=== PATIENT | female | born 1945 | race Caucasian/White ===

== ENCOUNTER 2016-10-05 10:12 | Outpatient (RCR) | payer MEDICARE ==
[~2016-10-05 10:12] MED LIST: AMLO2.5T PO; APIX5TAB2 PO; ASCO1TAB17 PO; CALC-80 PO; CHOL100011 PO; DRON400T PO; DRON400T2 PO; LIOT5TAB3 PO; LOSA1TAB23 PO; METO50TA2 PO; MULT-974 PO; VITA400T9 PO
--- OUTSIDE RECORDS SUMMARY | 2016-10-05 10:15 | XMS REPORT | Continuity of Care Document ---
Author Author [facility] Organization [facility] Address Unknown Phone Unavailable Support Name Relationship Address Phone ESTIVEN MADRIGAL MD Caregiver [address] [place] [address] LEONARDO HERNNADEZ Next Of Kin [address] [place] [address] Insurance Providers Payer Name Policy Number Subscriber Name Relationship Wps Medicare [id number] Maurilio Hernandez 18 Self / Same As Patient Blue Cross Mcr Supp [id number] Maurilio Hernandez 18 Self / Same As Patient Advance Directives Directive Response Recorded Date/Time Advance Directives Yes 12/11/14 12:10pm Health Care Power of Blood Bank Order Control Clerk Yes 12/11/14 12:10pm Organ Donor Yes 12/11/14 12:10pm Resuscitation Status Full Code 12/11/14 12:10pm Problems No known problems or medical conditions. Medications Medication Dose Route Sig Days/Qty Instructions Order Date Discontinued Date Status Losartan/Hydrochlorothiazide 1 Tab PO DAILY 12/11/14 Active Amlodipine Besylate (Norvasc 2.5 Mg) 2.5 Mg PO DAILY 12/11/14 Active Metoprolol Tartrate 50 Mg PO BEDTIME 12/11/14 Active Liothyronine Sodium 5 Mcg PO MON, WED, FRI, SUN 12/11/14 12/12/14 Discontinued Calcium Carbonate/Vitamin D3 1 Tab PO DAILY 12/11/14 Active Multivitamin 1 Tab PO DAILY 12/11/14 Active Cholecalciferol 1,000 Unit PO DAILY 12/11/14 Active Vitamin E Mixed 400 Unit PO DAILY 12/11/14 12/12/14 Discontinued Ascorbic Acid/Bioflavonoids 1 Tab PO DAILY 12/11/14 Active Apixaban 5 Mg PO TWICE A DAY 60 Qty 12/12/14 Active Dronedarone Hydrochloride 400 Mg PO TWICE A DAY 60 Qty 12/12/14 Active Social History Social History Problem Response Recorded Date/Time Alcohol Use Denies Use 12/11/2014 12:10pm Recreational Drug Use No 12/11/2014 12:10pm Recent Foreign Travel No 12/11/2014 12:10pm Recent Infectious Disease Exposure No 12/11/2014 12:10pm Hospitalization with Isolation Denies 12/12/2014 4:22pm Sexually Transmitted Disease No 12/11/2014 12:10pm HIV/AIDS No 12/11/2014 12:10pm Smoking Status Never a Smoker 12/11/2014 12:10pm Do you dip or chew tobacco? No 12/11/2014 12:10pm Query Response Start Date Stop Date Smoking Status Never a Smoker Hospital Discharge Instructions No hospital discharge instructions. Plan of Care Discharge Date 12/12/14 12:25pm Disposition 30 STILL A PATIENT Instructions/Education Provided Atrial Fibrillation (GEN) Forms Provided PDI Medical Prescriptions See Medications Section Referrals ESTIVEN MADRIGAL MD (Unspecified) 12/19/14 Address: [address] [place] [phone] Reason(s) for Referral: Your appointment is on Dec 19 at 11 am AMADOR PORTILLO MD (Unspecified) 12/17/14 Address: [address] [place] [phone] Reason(s) for Referral: Your appointment is on Dec 17 at 3 pm Additional Instructions/Education We will call you with the date and time of your sleep study Care Plan and Goals make an appt for her to see Dr. Portillo later this week as an outpatient. Appt to see me next week. Need sto be set up for overnight sleep study for sleep apnea. PLease call in new scripts for patient Functional Status Query Response Date Recorded Comprehension Ability Understands Concepts December 11, 2014 12:10pm Allergies, Adverse Reactions, Alerts Allergen Type Severity Reaction Status Last Updated No Known Drug Allergies Active 09/08/11 Immunizations Name Given Type Date of Pneumonia Vaccine 12/11/09 Historical Date of Influenza Vaccine 08/08/14 Historical Tetanus Booster (TDap) Unknown Historical Vital Signs Acute Vital Signs Vital Response Date/Time Temperature (Fahrenheit) 97.7 degrees F (97.6 - 99.5) Temperature (Calculated Celsius) 36.49258 degrees C (36.4 - 37.5) Temperature Source Tympanic Pulse Rate (adult) 59 bpm (60 - 90) Respiratory Rate 18 bpm (12 - 24) O2 Sat by Pulse Oximetry 96 % (88 - 100) Blood Pressure 112/66 mm Hg Height (Feet) 5 feet Height (Inches) 6.00 inches Height (Calculated Centimeters) 167.904651 cm Weight (Pounds) 172 pounds Weight (Ounces) 8.0 oz Weight (Calculated Grams) 18519.888 gm Weight (Calculated Kilograms) 78.149818 kilograms Calculated BMI 27.11 Results Laboratory Results Test Name Result Units Flags Reference Collection Date/Time Result Date/ Time Comments White Blood Count 7.0 10^3/uL 4.3-11.0 12/12/2014 4:44am 12/12/2014 5: 20am Red Blood Count 4.50 10^6/uL 4.35-5.85 12/12/2014 4:44am 12/12/2014 5: 20am Hemoglobin 13.4 G/DL 11.5-16.0 12/12/2014 4:44am 12/12/2014 5:20am Hematocrit 39 % 35-52 12/12/2014 4:44am 12/12/2014 5:20am Mean Corpuscular Volume 87 FL 80-99 12/12/2014 4:44am 12/12/2014 5: 20am Mean Corpuscular Hemoglobin 30 PG 25-34 12/12/2014 4:44am 12/12/2014 5: 20am Mean Corpuscular Hemoglobin Concent 34 G/DL 32-36 12/12/2014 4:44am 02/2015 5:20am Red Cell Distribution Width 12.7 % 10.0-14.5 12/12/2014 4:44am 2014 5:20am Platelet Count 236 10^3/uL 130-400 12/12/2014 4:44am 12/12/2014 5:20am Mean Platelet Volume 11.0 FL H 7.4-10.4 12/12/2014 4:44am 12/12/2014 5: 20am Neutrophils (%) (Auto) 66 % 42-75 12/11/2014 12:47pm 12/11/2014 12: 53pm Lymphocytes (%) (Auto) 24 % 12-44 12/11/2014 12:47pm 12/11/2014 12: 53pm Monocytes (%) (Auto) 9 % 0-12 12/11/2014 12:47pm 12/11/2014 12:53pm Eosinophils (%) (Auto) 0 % 0-10 12/11/2014 12:47pm 12/11/2014 12:53pm Basophils (%) (Auto) 1 % 0-10 12/11/2014 12:47pm 12/11/2014 12:53pm Neutrophils # (Auto) 6.3 X 10^3 1.8-7.8 12/11/2014 12:47pm 12/11/2014 12:53pm Lymphocytes # (Auto) 2.3 X 10^3 1.0-4.0 12/11/2014 12:47pm 12/11/2014 12:53pm Monocytes # (Auto) 0.9 X 10^3 0.0-1.0 12/11/2014 12:47pm 12/11/2014 12: 53pm Eosinophils # (Auto) 0.0 10^3/uL 0.0-0.3 12/11/2014 12:47pm 12/11/2014 12:53pm Basophils # (Auto) 0.1 10^3/uL 0.0-0.1 12/11/2014 12:47pm 12/11/2014 12 :53pm D-Dimer 0.27 UG/ML 0.00-0.49 12/11/2014 12:50pm 12/11/2014 1:31pm Sodium Level 139 MMOL/L 135-145 12/12/2014 4:44am 12/12/2014 5:42am Potassium Level 3.6 MMOL/L 3.6-5.0 12/12/2014 4:44am 12/12/2014 5:42am Chloride Level 104 MMOL/L 98-107 12/12/2014 4:44am 12/12/2014 5:42am Carbon Dioxide Level 25 MMOL/L 21-32 12/12/2014 4:44am 12/12/2014 5: 42am Blood Urea Nitrogen 23 MG/DL H 7-18 12/12/2014 4:44am 12/12/2014 5:42am Creatinine 0.91 MG/DL 0.60-1.30 12/12/2014 4:44am 12/12/2014 5:42am BUN/Creatinine Ratio 25 12/12/2014 4:44am 12/12/2014 5:42am Estimat Glomerular Filtration Rate > 60 12/12/2014 4:44am 2014 5:42am GFR INTERPRETIVE DATA UNITS FOR ESTIMATED GFR (eGFR): mL/min/1.73 M2 REFERENCE RANGE FOR ESTIMATED GFR (eGFR) eGFR NORMAL eGFR >60 MODERATELY DECREASED eGFR 30-59 SEVERLY DECREASED eGFR 15-29 KIDNEY FAILURE <15 (OR DIALYSIS) Glucose Level 94 MG/DL 70-105 12/12/2014 4:44am 12/12/2014 5:42am Calcium Level 8.9 MG/DL 8.5-10.1 12/12/2014 4:44am 12/12/2014 5:42am Total Bilirubin 0.6 MG/DL 0.1-1.0 12/11/2014 12:50pm 12/11/2014 1:38pm Alkaline Phosphatase 67 U/L 40-136 12/11/2014 12:50pm 12/11/2014 1: 38pm Aspartate Amino Transf (AST/SGOT) 17 U/L 5-34 12/11/2014 12:50pm 2014 1:38pm Alanine Aminotransferase (ALT/SGPT) 20 U/L 0-55 12/11/2014 12:50pm 01/2015 1:38pm Troponin I < 0.30 NG/ML <0.30 12/11/2014 12:50pm 12/11/2014 1:59pm B-Type Natriuretic Peptide 152.4 PG/ML H <100.0 12/11/2014 12:47pm 2014 1:18pm Total Protein 7.5 G/DL 6.4-8.2 12/11/2014 12:50pm 12/11/2014 1:38pm Albumin 4.2 G/DL 3.2-4.5 12/11/2014 12:50pm 12/11/2014 1:38pm Triglycerides Level 125 MG/DL <150 12/12/2014 4:44am 12/12/2014 5:42am Cholesterol Level 187 MG/DL < 200 12/12/2014 4:44am 12/12/2014 5:42am HDL Cholesterol 38 MG/DL L 40-60 12/12/2014 4:44am 12/12/2014 5:42am LDL Cholesterol Direct 124 MG/DL 1-129 12/12/2014 4:44am 12/12/2014 5: 42am VLDL Cholesterol 25 MG/DL 5-40 12/12/2014 4:44am 12/12/2014 5:42am Thyroid Stimulating Hormone (TSH) 2.24 UIU/ML 0.35-4.94 12/11/2014 12: 50pm 12/11/2014 1:59pm Free Thyroxine 0.91 NG/DL 0.70-1.48 12/11/2014 12:50pm 12/11/2014 1: 59pm Procedures Procedure Status Date Provider(s) Tracing only of electrocardiogram completed 12/11/14 ESTIVEN MADRIGAL MD Color Doppler echocardiography completed 12/11/14 ESTIVEN MADRIGAL MD Tracing only of electrocardiogram completed 12/11/14 AMADOR PORTILLO MD Encounters Encounter Location Date/Time Discharged Inpatient Via [facility] 12/11/14 12:18pm
[2016-10-14] MEDS ORDERED: LEVO50TA6 PO (13:15)
[2016-10-14] MEDS ORDERED: OMEG-160 PO (13:15)
[2016-10-14] MEDS ORDERED: GLUT25PO PO (13:15)
[2016-10-14] MEDS ORDERED: FLEC100T PO (15:31)
[2016-10-26] MEDS ORDERED: AMLO2.5T PO (11:55)
[2016-10-26] MEDS ORDERED: FLEC50TA PO (11:55)
[2016-10-26] MEDS ORDERED: OMEG-160 PO (11:55)
[2016-11-10] MEDS ORDERED: FLEC100T PO (10:52)
== END 2017-01-03 | disposition home or self-care (01) ==
LOC: CARD 10:12
PROVIDERS: ATTEND Physician Assistant
DX: I25.10 Atherosclerotic heart disease of native coronary artery without angina pectoris (principal); I10 Essential (primary) hypertension; I48.0 Paroxysmal atrial fibrillation; R00.2 Palpitations
CPT/HCPCS: 93225; 93226

== ENCOUNTER → 2016-11-10 | Day surgery (SDC) | payer MEDICARE ==
[~2016-11-10] VITALS: Ht 168.9 cm; Wt 81.6 kg
[~2016-11-10] MED LIST changes: +BACITRACIN INJECTION 50,000 UNIT, SODIUM CHLORIDE 0.9% IRRIGATIO 500 ML IR ONE; +FLEC100T PO; +FLEC50TA PO; +GLUT25PO PO; +HEParin (CATH LAB) 0 ML IV ONE; +LEVO50TA6 PO; +LIDOCAINE 1% INJ 20 ML (XYLOCAINE) VIAL ONE; +NS IV 1000 ML 1,000 ML IV SCH; +NS IV 1000 ML 1,000 ML ONE; +OMEG-160 PO; +ceFAZolin 1,000 MG (ANCEF) VIAL ONE
--- OUTSIDE RECORDS SUMMARY | 2016-11-10 08:31 | XMS REPORT | Continuity of Care Document ---
Author Author [facility] Organization [facility] Address Unknown Phone Unavailable Support Name Relationship Address Phone ESTIVEN MADRIGAL MD Caregiver [address] [place] [address] LEONARDO HERNANDEZ Next Of Kin [address] [place] [address] Insurance Providers Payer Name Policy Number Subscriber Name Relationship Wps Medicare [id number] Maurilio Hernandez 18 Self / Same As Patient Blue Cross Mcr Supp [id number] Maurilio Hernandez 18 Self / Same As Patient Advance Directives Directive Response Recorded Date/Time Advance Directives Yes 12/11/14 12:10pm Health Care Power of Special Procedure Tech Yes 12/11/14 12:10pm Organ Donor Yes 12/11/14 [...] Referrals ESTIVEN MADRIGAL MD (Unspecified) 12/19/14 Address: [address] [place] [phone] Reason(s) for Referral: Your appointment is on Dec 19 at 11 am AMADOR PORTILLO MD (Unspecified) 12/17/14 Address: [address] [place] [address] [phone] Reason(s) for Referral: Your appointment is on [...] F (97.6 - 99.5) Temperature (Calculated Celsius) 36.18261 degrees C (36.4 - 37.5) Temperature Source Tympanic Pulse Rate (adult) 59 bpm (60 - 90) Respiratory Rate 18 bpm (12 - 24) O2 Sat by Pulse Oximetry 96 % (88 - 100) Blood Pressure 112/66 mm Hg Height (Feet) 5 feet Height (Inches) 6.00 inches Height (Calculated Centimeters) 167.244210 cm Weight (Pounds) 172 pounds Weight (Ounces) 8.0 oz Weight (Calculated Grams) 24412.888 gm Weight (Calculated Kilograms) 78.274685 kilograms Calculated BMI 27.11 Results Laboratory Results [...] Encounters Encounter Location Date/Time Discharged Inpatient Via [facility] 12/11/14 12:18pm
--- OUTSIDE RECORDS SUMMARY | 2016-11-10 08:32 | XMS REPORT | Continuity of Care Document ---
Author Author [facility] Organization [facility] Address Unknown Phone Unavailable Support Name Relationship Address Phone ESTIVEN MADRIGAL MD Caregiver [address] [place] [address] LEONARDO HERNANDEZ Next Of Kin [address] [place] [address] Insurance Providers Payer Name Policy Number Subscriber Name Relationship Wps Medicare [id number] Maurilio Hernandez 18 Self / Same As Patient Blue Cross Mcr Supp [id number] Maurilio Hernandez 18 Self / Same As Patient Advance Directives Directive Response Recorded Date/Time Advance Directives Yes 12/11/14 12:10pm Health Care Power of Hand Ornament Maker Yes 12/11/14 12:10pm Organ Donor Yes 12/11/14 [...] Referrals ESTIVEN MADRIGAL MD (Unspecified) 12/19/14 Address: [address] [place] [address] [phone] Reason(s) for Referral: Your appointment is on Dec 19 at 11 am AMADOR PORTILLO MD (Unspecified) 12/17/14 Address: [address] [place] [phone] Reason(s) for Referral: Your appointment is on [...] F (97.6 - 99.5) Temperature (Calculated Celsius) 36.27500 degrees C (36.4 - 37.5) Temperature Source Tympanic Pulse Rate (adult) 59 bpm (60 - 90) Respiratory Rate 18 bpm (12 - 24) O2 Sat by Pulse Oximetry 96 % (88 - 100) Blood Pressure 112/66 mm Hg Height (Feet) 5 feet Height (Inches) 6.00 inches Height (Calculated Centimeters) 167.073841 cm Weight (Pounds) 172 pounds Weight (Ounces) 8.0 oz Weight (Calculated Grams) 86056.888 gm Weight (Calculated Kilograms) 78.812716 kilograms Calculated BMI 27.11 Results Laboratory Results [...] Encounters Encounter Location Date/Time Discharged Inpatient Via [facility] 12/11/14 12:18pm
[2016-11-10 09:48] VITALS: BP 150/92
== END ==
LOC: CATH 08:27
PROVIDERS: ATTEND Internal Medicine Interventional Cardiology
DX: I49.5 Sick sinus syndrome (principal); I48.0 Paroxysmal atrial fibrillation; I10 Essential (primary) hypertension; Z53.09 Procedure and treatment not carried out because of other contraindication

== ENCOUNTER 2016-11-12 07:55 | Day surgery (SDC) | payer MEDICARE ==
[2016-11-12] VITALS (14 sets, daily range): BP systolic 96–164; BP diastolic 47–82
[~2016-11-12] VITALS: Ht 167.6 cm; Wt 81.6 kg
[~2016-11-12 07:55] MED LIST changes: -BACITRACIN INJECTION 50,000 UNIT, SODIUM CHLORIDE 0.9% IRRIGATIO 500 ML IR ONE; -HEParin (CATH LAB) 0 ML IV ONE; -LIDOCAINE 1% INJ 20 ML (XYLOCAINE) VIAL ONE; -NS IV 1000 ML 1,000 ML IV SCH; -NS IV 1000 ML 1,000 ML ONE; -ceFAZolin 1,000 MG (ANCEF) VIAL ONE
--- OUTSIDE RECORDS SUMMARY | 2016-11-12 07:58 | XMS REPORT | Continuity of Care Document ---
Author Author [facility] Organization [facility] Address Unknown Phone Unavailable Support Name Relationship Address Phone ESTIVEN MADRIGAL MD Caregiver [address] [place] [address] LEONARDO HERNANDEZ Next Of Kin [address] [place] [address] Insurance Providers Payer Name Policy Number Subscriber Name Relationship Wps Medicare [id number] Maurilio Hernandez 18 Self / Same As Patient Blue Cross Mcr Supp [id number] Maurilio Hernandez 18 Self / Same As Patient Advance Directives Directive Response Recorded Date/Time Advance Directives Yes 12/11/14 12:10pm Health Care Power of Coding Coordinator Yes 12/11/14 12:10pm Organ Donor Yes 12/11/14 [...] Referrals ESTIVEN MADRIGAL MD (Unspecified) 12/19/14 Address: [address] [place] [phone] Reason(s) for Referral: Your appointment is on Dec 19 at 11 am AMADOR PORTILLO MD (Unspecified) 12/17/14 Address: [address] [place] [phone] Reason(s) for Referral: Your appointment is on [...] F (97.6 - 99.5) Temperature (Calculated Celsius) 36.54027 degrees C (36.4 - 37.5) Temperature Source Tympanic Pulse Rate (adult) 59 bpm (60 - 90) Respiratory Rate 18 bpm (12 - 24) O2 Sat by Pulse Oximetry 96 % (88 - 100) Blood Pressure 112/66 mm Hg Height (Feet) 5 feet Height (Inches) 6.00 inches Height (Calculated Centimeters) 167.072086 cm Weight (Pounds) 172 pounds Weight (Ounces) 8.0 oz Weight (Calculated Grams) 31025.888 gm Weight (Calculated Kilograms) 78.309497 kilograms Calculated BMI 27.11 Results Laboratory Results [...] Encounters Encounter Location Date/Time Discharged Inpatient Via [facility] 12/11/14 12:18pm
--- OUTSIDE RECORDS SUMMARY | 2016-11-12 08:00 | XMS REPORT | Continuity of Care Document ---
Author Author [facility] Organization [facility] Address Unknown Phone Unavailable Support Name Relationship Address Phone ESTIVEN MADRIGAL MD Caregiver [address] [place] [address] LEONARDO HERNANDEZ Next Of Kin [address] [place] [address] Insurance Providers Payer Name Policy Number Subscriber Name Relationship Wps Medicare [id number] Maurilio Hernandez 18 Self / Same As Patient Blue Cross Mcr Supp [id number] Maurilio Hernandez 18 Self / Same As Patient Advance Directives Directive Response Recorded Date/Time Advance Directives Yes 12/11/14 12:10pm Health Care Power of Pattern Data Operator Yes 12/11/14 12:10pm Organ Donor Yes 12/11/14 [...] Referrals ESTIVEN MADRIGAL MD (Unspecified) 12/19/14 Address: [address] [place] [phone] Reason(s) for Referral: Your appointment is on Dec 19 at 11 am AMADOR PORTILLO MD (Unspecified) 12/17/14 Address: [address] [place] [phone] [phone] Reason(s) for Referral: Your appointment is on [...] F (97.6 - 99.5) Temperature (Calculated Celsius) 36.42889 degrees C (36.4 - 37.5) Temperature Source Tympanic Pulse Rate (adult) 59 bpm (60 - 90) Respiratory Rate 18 bpm (12 - 24) O2 Sat by Pulse Oximetry 96 % (88 - 100) Blood Pressure 112/66 mm Hg Height (Feet) 5 feet Height (Inches) 6.00 inches Height (Calculated Centimeters) 167.250108 cm Weight (Pounds) 172 pounds Weight (Ounces) 8.0 oz Weight (Calculated Grams) 62041.888 gm Weight (Calculated Kilograms) 78.751227 kilograms Calculated BMI 27.11 Results Laboratory Results [...] Encounters Encounter Location Date/Time Discharged Inpatient Via [facility] 12/11/14 12:18pm
[2016-11-12] MEDS ORDERED: NS IV 1000 ML 1,000 ML ONE (08:01)
[2016-11-12] MEDS ORDERED: LIDOCAINE 1% INJ 20 ML (XYLOCAINE) VIAL ONE (08:01)
[2016-11-12] MEDS ORDERED: HEParin (CATH LAB) 1,000 ML IV ONE (08:01)
[2016-11-12] MEDS ORDERED: NS (IVPB) 50 ML ONE (08:02)
[2016-11-12] MEDS ORDERED: ceFAZolin 1,000 MG (ANCEF) VIAL ONE (08:02)
[2016-11-12] MEDS ORDERED: NS IV 1000 ML 1,000 ML IV SCH ×2 (08:30→11:50)
[2016-11-12] MEDS ORDERED: fentaNYL INJECTION 100 MCG/2 ML AMP ONE ×2 (08:39→10:34)
[2016-11-12] MEDS ORDERED: MIDAZOLAM 5 MG/5 ML (VERSED) VIAL ONE ×2 (08:39→09:45)
[2016-11-12] MEDS ORDERED: BACITRACIN INJECTION 50,000 UNIT, SODIUM CHLORIDE 0.9% IRRIGATIO 500 ML IR ONE ×2 (09:00)
[2016-11-12] MEDS ORDERED: diphenhydrAMINE 50 MG/ML INJ (BENADRYL) ONE (10:16)
[2016-11-12] MEDS ORDERED: meTOprolol 5 MG/5 ML (LOPRESSOR) VIAL ONE (10:24)
--- NOTE | 2016-11-12 11:48 | Cardiac Procedure Note-CS/ASA ---
Pre-Procedure Note Pre-Op Procedure Note H&P Reviewed The H&P was reviewed, patient examined and no changes noted. Date H&P Reviewed: Nov 12, 2016 Time H&P Reviewed: 08:30 Conscious Sedation Pre-Proced Time Reviewed: 08:30 ASA Class: 3 Airway Mallampati Classification: ([place] appropriate class) I. II. III, IV Lungs Heart ASA score ASA 1: a normal healthy patient ASA 2: a patient with a mild systemic disease (mid diabetes, controlled hypertension, obesity ASA 3: a patient with a severe systemic disease that limits activity (angina , COPD, prior Myocardial infarction) ASA 4: a patient with an incapacitating disease that is a constant threat to life (CHF, renal failure) ASA 5: a moribund patient not expected to survive 24 hrs. (ruptured aneurysm) ASA 6: a declared brain patient whose organs are being harvested. For emergent operations, add the letter E after the classification Grade 1 Sedation Plan: Analgesia, Amnesia, Plan communicated to team members, Discussed options with patient/fam, Discussed risks with patient/fam Note The patient is an appropriate candidate to undergo the planned procedure, sedation, and anesthesia. The patient immediately re-assessed prior to indication. Karolina CUELLO MD Nov 12, 2016 11:48 am
--- NOTE | 2016-11-12 11:50 | Progress Note-Post Operative ---
Post-Operative Progess Note Pre-Operative Diagnosis persistent AF, severe sick sinus syndrome, pauses longest 10 sec Post-Operative Diagnosis persistent AF, s/p dual chamber PPM Post-Op Procedure Note Date of Procedure: Nov 12, 2016 Name of Procedure: Dual Chamber Permanent Pacemaker implantation Procedure Note/Findings Dual Chamber PPM implantations Anesthesia Type Local Anesthesia, Conscious sedation Estimated blood loss (mL): 20 cc Packing: none Specimen(s) collected none Karolina CUELLO MD Nov 12, 2016 11:50 am
[2016-11-12] MEDS ORDERED: PATIENT MAY USE OWN MEDS, ALL PO SCH (12:00)
[2016-11-12] MEDS: ceFAZolin INJECTION 1,000 MG in NORMAL SALINE (BAXTER MINI) 50 ML IV SCH ×2 (14:44→21:07)
--- NOTE | 2016-11-12 14:45 | Diagnostic Imaging Report ---
INDICATION: Arrhythmia. Portable chest 2:31 p.m. There is left subclavian dual chamber pacemaker with leads projecting over the right atrium and right ventricle. Heart size and pulmonary vascularity are normal. Lungs are clear. There are no effusions or pneumothoraces. IMPRESSION: No acute abnormalities in the chest. Dictated by: Dictated on workstation # [id number]
[2016-11-12] MEDS ORDERED: PATIENT MAY USE OWN MEDS, ALL MC SCH (17:00)
[2016-11-12] MEDS: meTOprolol TARTRATE 50 MG (LOPRESSOR) TAB PO SCH (21:06)
[2016-11-12] MEDS: FLECAINIDE 100 MG (TAMBOCOR) TAB PO SCH (21:07)
[2016-11-13] VITALS: BP 119/74
[2016-11-13 04:00] VITALS: BP 106/71
[2016-11-13] MEDS: ceFAZolin INJECTION 1,000 MG in NORMAL SALINE (BAXTER MINI) 50 ML IV SCH (06:00)
[2016-11-13 07:58] VITALS: BP 125/75
[2016-11-13] MEDS: FLECAINIDE 100 MG (TAMBOCOR) TAB PO SCH (08:01)
[2016-11-13] MEDS: meTOprolol TARTRATE 50 MG (LOPRESSOR) TAB PO SCH (08:02)
[2016-11-13] MEDS ORDERED: APIXABAN 5 MG (ELIQUIS) TABLET PO SCH (09:00)
[2016-11-13 10:55] VITALS: BP 125/75
--- NOTE | 2016-11-13 11:20 | Discharge Inst-Post Device ---
Discharge Inst-Post Device Follow up/Plan Dr Maldonado in one week Heart Healthy Diet Do not lift arm on side of device placement above head for 4 weeks. Do not push and pull heavy objects for 4 weeks. Activity as tolerated. Leave dressing on until follow up at the office. Karolina MALDONADO MD Nov 13, 2016 11:20
--- NOTE | 2016-11-13 11:20 | Cardiology Discharge Summary ---
Diagnosis/Chief Complaint Date of Admission 11/12/2016 Date of Discharge 11/13/2016 Admission Diagnosis Severe sick sinus syndrome, atrial fibrillation Final/Discharge Diagnosis Severe sick sinus syndrome, atrial fibrillation, status post dual chamber permanent pacemaker implantation Chief Complaint/HPI Chief Complaint/HPI Severe symptomatic sick sinus syndrome with longest pause of 10 seconds. Atrial fibrillation Discharge Summary Procedures 1. Dual-chamber permanent pacemaker implantation. 2. Linq removal. Discharge Physical Examination Normal left upper chest examination. Stable cardiac and respiratory examination. Hospital Course Normal chest x-ray. Stable vital signs. Discussion & Recommendations Discussion Stable to discharge Follow up appt.: Dr. Maldonado in one week for wound check. Dicharge Diet: Cardiac Diet Activity as Tolerated: Yes Home Medications Reviewed patient Home Medication Reconciliation Form Discharge Home Medications: Reviewed and agree with Discharge Medication list on patient's Discharge Instruction sheet Condition at discharge stable Karolina MALDONADO MD Nov 13, 2016 11:20
--- NOTE | 2016-11-15 18:16 | OPERATIVE REPORT ---
PROCEDURE PHYSICIAN: TONY CUELLO DATE OF PROCEDURE: 11/12/2016 DUAL-CHAMBER PERMANENT PACEMAKER IMPLANTATION: INDICATION: 1. Atrial fibrillation, on flecainide and metoprolol. 2. Severe sick sinus syndrome; longest pause was 10 seconds with syncope. REFERRING HYDRAULIC PRESS TENDER: Dr. Portillo. PREOPERATIVE INDICATION: 1. Atrial fibrillation. 2. Sick sinus syndrome. POSTOPERATIVE DIAGNOSES: 1. Atrial fibrillation. 2. Sick sinus syndrome. 3. Status post dual-chamber permanent pacemaker implantation. 4. ILR explantation. HISTORY: Ms. Hernandez is a 71-year-old lady who has history of persistent atrial fibrillation. She was started on flecainide and metoprolol. Previously she had a LINQ, which is an implantable loop recorder implantation which showed pauses around 4 seconds. She was cardioverted to sinus rhythm previously. However, she presented to us with syncope and device interrogation showed pauses, longest of 10 seconds. The patient continues to need flecainide and metoprolol and the patient has a significant sinus node dysfunction, dual chamber permanent pacemaker is indicated. PERFORMING PHYSICIAN: Dr. Padmini Cuello. PROCEDURE PERFORMED: 1. Dual-chamber permanent pacemaker implantation. 2. Fluoroscopy. 3. Central venous access. 4. LINQ implantable loop recorder explantation. ANESTHESIA: Local anesthesia, conscious sedation. PROCEDURE DETAILS: After all of her questions were answered, the patient was brought to the Pole Peeling Machine Operator after informed consent was taken. The patient's left chest was prepped and prepped in the usual sterile fashion. A 2 inch horizontal incision was made 1 cm below the clavicle and dissection carried down to the pectoralis fascia. Using the modified Seldinger technique and under fluoroscopy guidance, the anterior aspect of the left axillary vein was accessed 2 times. The J wires were secured to the drapes with mosquito clamp. A 7-Estonian sheath was introduced over one of the wires. The RV lead was then inserted. The RV lead was directed across tricuspid valve to apical portion of the RV. The screw was deployed; we got good R-wave sensitivity; however, capture thresholds were very high (over 3). We checked numerous apical positions the RV; however, all of them showed significantly elevated capture thresholds. Therefore, we decided to screw the RV lead in the mid to distal septal septum. The position was checked in FEMI and ELISE views. The screw was deployed and the lead connected to the coordinate measuring machine programmer. good sensing and pacing thresholds were obtained. Diaphragmatic pacing was ruled out. The lead was secured with 2-0 silk ties to the underlying muscle and fascia. Next a 7-Estonian sheath was introduced with the remaining J-wire. An atrial lead was then introduced and guided to the level of the right appendage. The screw was deployed and the lead was connected to the interrogator. Good sensing and pacing thresholds were obtained. Diaphragmatic pacing was ruled out. The leads were secured with a 2-0 silk tie to the underlying muscle and fascia. The leads were connected to the device in a hermetic fashion. The device and leads were placed in the pocket. Aggressive irrigation with saline solution was done. The device was secured to the underlying muscle and fascia with a 2-0 silk tie. Interrogation of the device revealed good integrity of the leads and good connections. The wound was then closed using 3 layers. The first layer was an interrupted 2-0 absorbable Vicryl suture followed by an uninterrupted 2-0 Vicryl suture. The last layer was a single subcuticular layer with 4-0 Vicryl suture. Half inch Steri-Strips and a small dressing were applied to the wound. The patient tolerated the procedure well and was returned to the recovery room in the in stable condition with stable vital signs. The midsternal was prepped in a sterile fashion. Lidocaine was given to the area of LINQ implantation. A small incision was made and the LINQ recorder was explanted. The wound was closed with Dermabond and Steri-Strips. DEVICE INFORMATION: Device is MedNexopia model number A2DR01, serial number [id number]. RA LEAD: Model number 235473, length 52, serial number [id number]. Medtronic lead. Active fixation. RV: Model 5076-58, length 58. Serial number [id number], Medtronic active fixation. OPERATIVE DEVICE INTERROGATION: 1. Right atrial sensing was performed in atrial fibrillation. Impedance of 556 ohms. P-wave 2.8. 2. RV threshold: 0.4 volts at 0.5 ms. Impedance 950 ohms. RV 12.3 millivolts. COMPLICATIONS: None. ESTIMATED BLOOD LOSS: 20 mL. FLUOROSCOPY TIME: 10.1 minutes. FLUOROSCOPY DOSE: 52 mGy PLAN: The patient will be transferred to the ICU. We will continue with 2 more doses of IV antibiotics. We will check a chest x-ray and interrogate the device in the morning. The patient will continue on oral antibiotics for 5 days. Job ID: [id number] Dictated Date: 11/12/2016 14:18:46 Mushroom Farmer Date: 11/15/2016 18:01:53 / tree NOGUEIRA
== END 2016-11-13 10:55 | disposition home or self-care (01) ==
LOC: CATH 07:55 → ICU 12:20 → CSD 14:00 → CATH 11-13 10:55
PROVIDERS: ATTEND Internal Medicine Interventional Cardiology
DX: I48.1 Persistent atrial fibrillation (principal); I49.5 Sick sinus syndrome; Z79.899 Other long term (current) drug therapy
CPT/HCPCS: 33208; 33284; 71010; 93005

== ENCOUNTER → 2017-04-26 | Outpatient (CLI) | payer MEDICARE ==
--- NOTE | 2017-04-27 09:31 | Diagnostic Imaging Report ---
Bilateral screening mammogram The current study was also evaluated with a Computer Aided Detection (CAD) system. Indication: Screening. No current complaints stated on the questionnaire. COMPARISON: 04/23/16 FINDINGS: The breasts are composed of scattered fibroglandular densities. There are scattered benign-appearing calcifications. There is a pacemaker noted projecting along the left axillary region. Allowing for technique and positional differences, no suspicious change is seen. IMPRESSION: No significant change. ACR BI-RADS Category 2: Benign findings. Result letter will be mailed to the patient. Note: At least 10% of breast cancer is not imaged by mammography. Dictated by: Dictated on workstation # [id number]
== END ==
LOC: RAD 14:54
PROVIDERS: ATTEND Internal Medicine
DX: Z12.31 Encounter for screening mammogram for malignant neoplasm of breast (principal)
CPT/HCPCS: 77067

== ENCOUNTER → 2017-12-16 | Outpatient (CLI) | payer MEDICARE ==
--- NOTE | 2017-12-16 13:31 | Diagnostic Imaging Report ---
TIME OF EXAM: 12/16/2017 9:32 AM CLINICAL HISTORY: 73-year-old female presents for bone density screening. TECHNIQUE: DEXA scan of the lumbar spine and bilateral hips. COMPARISON: 10/11/2002 FINDINGS: Lumbar Spine: The bone mineral density of the lumbar spine measured from vertebral bodies L2-L4 measures 0.955 g/cm2 with a T score of -2.0. The Z score is -0.9. Age matched bone mineral density is 90%. By WHO classification there is osteopenia. The fracture risk is increased. The bone mineral density on previous exam was 1.038 g/cm2; findings represents a change in bone mineral density of -8.0%. Right hip: The bone mineral density of the right femoral neck measures 0.910 g/cm2 with a T-score of -0.9. Z score is 0.6. Age matched bone mineral density is 110%. By WHO classification there is normal bone density. The bone mineral density in the total right hip measures 1.014 g/cm2, with a T score of 0.1 and a Z score of 1.4. Left hip: The bone mineral density of the left femoral neck measures 0.863 g/cm2, with a T score of -1.3 and a Z score of 0.3. The total left hip bone mineral density is 0.969 g/cm2, with a T score of -0.3 and a Z score of 1.0. The mean total hip bone mineral density is 0.992 g/cm2, which correlates with a 3.5% increase in bone mineral density since 2001. The T-score is defined as the Bone Mineral Density (BMD) of the patient compared with the mean peak BMD of a young adult population by standard deviation (SD). Normal < 1 SD below mean peak value Osteopenia > 1 SD but < 2.5 SD below mean peak value Osteoporosis > 2.5 SD below mean peak value The WHO classification does not apply to healthy premenopausal women and men less than 50 years of age. If the patient is premenopausal or male less than 50 year of age T-scores should not be used. Terms such as "low bone density for chronological age" may be used if the Z-score is less than -2.0 IMPRESSION: 1. Osteopenia, based on a T score of -2.0 in the lumbar spine. Dictated by: Dictated on workstation # [id number]
== END ==
LOC: RAD 08:46
PROVIDERS: ATTEND Internal Medicine
DX: Z13.820 Encounter for screening for osteoporosis (principal); M85.88 Other specified disorders of bone density and structure, other site
CPT/HCPCS: 77080

== ENCOUNTER → 2018-03-15 | Outpatient (CLI) | payer MEDICARE | LOC: CARD 10:32 | PROVIDERS: ATTEND Internal Medicine Cardiovascular Disease | DX: I48.0 Paroxysmal atrial fibrillation (principal); I25.10 Atherosclerotic heart disease of native coronary artery without angina pectoris; R07.9 Chest pain, unspecified; I10 Essential (primary) hypertension; R00.2 Palpitations; I49.9 Cardiac arrhythmia, unspecified; Z95.0 Presence of cardiac pacemaker | CPT/HCPCS: 93306 ==

== ENCOUNTER → 2019-05-05 | Outpatient (CLI) | payer MEDICARE ==
[~2019-05-05] MED LIST changes: +AMLO2.5T4 PO
== END ==
LOC: RAD 09:45
PROVIDERS: ATTEND Internal Medicine
DX: Z12.31 Encounter for screening mammogram for malignant neoplasm of breast (principal)
CPT/HCPCS: 77067

== ENCOUNTER → 2019-07-17 | Outpatient (CLI) | payer MEDICARE ==
[~2019-07-17] MED LIST changes: +CATHETER FLUSH 10 ML SYR IV PRN; +REGADENOSON 0.4 MG/5 ML SYR (LEXISCAN) IV ONE
[2019-07-17 09:45] VITALS: BP 159/78
[2019-07-17 09:47] VITALS: BP 181/83
--- NOTE | 2019-07-18 08:10 | STRESS TEST ---
DATE OF SERVICE: 07/17/2019 LEXISCAN MYOVIEW STRESS TEST REPORT REFERRING PHYSICIAN: Dr. José. Baseline heart rate 65, baseline blood pressure 168/78. Baseline EKG is sinus rhythm with no ischemic changes. In summary, the patient was injected with 10.81 mCi of technetium-99 Myoview and the resting images were obtained. Then, the patient received 0.4 mg of Lexiscan followed by 30.5 mCi of technetium-99 Myoview. Throughout the test, there were no EKG changes. The resting and stress images were reviewed and compared in the short axis, horizontal long axis, and vertical long axis views. Review of the images showed breast attenuation affecting the quality of the images. There is decreased uptake involving the basal to mid anterior wall, anterolateral wall and anterior septum. SSS is 10, SDS 7, and TID value 1.16. On the gated images, the left ventricle appeared to be normal size with normal contractility. Calculated ejection fraction 74%. CONCLUSION: 1. The patient tolerated Lexiscan well. 2. Breast attenuation with reversible ischemia involving the basal to mid anterior wall, anterolateral wall and anterior septum. 3. Normal left ventricular size with normal contractility. Calculated ejection fraction 74%. Job ID: [id number] DocumentID: [id number] Dictated Date: 07/18/2019 07:39:05 Certified Cytotechnologist Date: 07/18/2019 08:09:40 Dictated By: AMADOR CARNES MD
== END ==
LOC: CARD 07:58
PROVIDERS: ATTEND Internal Medicine Cardiovascular Disease
DX: I48.0 Paroxysmal atrial fibrillation (principal); I25.10 Atherosclerotic heart disease of native coronary artery without angina pectoris; I49.5 Sick sinus syndrome; I07.1 Rheumatic tricuspid insufficiency
CPT/HCPCS: 78452; 93017

== ENCOUNTER → 2020-05-06 | Outpatient (CLI) | payer MEDICARE ==
[~2020-05-06] MED LIST changes: -CATHETER FLUSH 10 ML SYR IV PRN; -REGADENOSON 0.4 MG/5 ML SYR (LEXISCAN) IV ONE
--- NOTE | 2020-05-07 13:14 | Diagnostic Imaging Report ---
INDICATION: Routine screening. COMPARISON: 05/05/2019 and 05/04/2018. TECHNIQUE: 2D and 3D bilateral screening mammography was performed with CAD. FINDINGS: Both breasts are heterogeneously dense, limiting the sensitivity of mammography. A nodular density in the retroareolar left breast is stable. The overall breast parenchymal pattern is stable. No mass or malignant appearing microcalcifications are seen. The left axilla contains a pacemaker battery pack. IMPRESSION: No mammographic features suspicious for malignancy are identified. ACR BI-RADS Category 2: Benign findings. Result letter will be mailed to the patient. Note: At least 10% of breast cancer is not imaged by mammography. Dictated by: Dictated on workstation # [id number]
== END ==
LOC: RAD 14:18
PROVIDERS: ATTEND Internal Medicine
DX: Z12.31 Encounter for screening mammogram for malignant neoplasm of breast (principal)
CPT/HCPCS: 77063; 77067

== ENCOUNTER → 2021-01-14 | Outpatient (CLI) | payer MEDICARE | LOC: CARD 12:30 | PROVIDERS: ATTEND Internal Medicine Cardiovascular Disease | DX: I11.9 Hypertensive heart disease without heart failure (principal); I08.0 Rheumatic disorders of both mitral and aortic valves | CPT/HCPCS: 93306 ==

== ENCOUNTER → 2021-01-15 | Outpatient (CLI) | payer MEDICARE ==
[~2021-01-15] VITALS: Ht 170 cm; Wt 83.0 kg
[~2021-01-15] MED LIST changes: +ALEN70TA80 PO; +APIX5TAB PO; +CALC-654 PO; +CATHETER FLUSH 10 ML SYR IV PRN; +CHOL100045 PO; +CYAN500T8 PO; +GLUC1TAB20 PO; +LEVO50TA PO; +LEVO75TA PO; +METO50TA15 PO; +MULT-137 PO; +OMEG-179 PO; +OMEG-213 PO; +REGADENOSON 0.4 MG/5 ML SYR (LEXISCAN) IV ONE
[2021-01-15 09:03] VITALS: BP 178/88
--- NOTE | 2021-01-15 12:28 | Cardiology Stress Test Report ---
Stress Test Report Date of Procedure/Referring: Date of Procedure: Jan 15, 2021 PCP Amador Portillo MD Admitting Physician Maritza José DO Indications: HTN Baseline Heart Rate: 60 Baseline Blood Pressure: Blood Pressure Systolic: 178 Blood Pressure Diastolic: 88 Baseline Vitals Vital Signs Date Time Temp Pulse Resp B/P (MAP) Pulse Ox O2 Delivery O2 Flow Rate FiO2 01/15/21 09:03 60 18 178/88 (118) Baseline EKG: Baseline EKG: NSR Summary After explaining the procedure to the patient, she signed a consent and then brought to the stress nuclear laboratory. Patient received 0.4 mg Lexiscan for stress test, ECG, heart rate and blood pressure were monitored continuously. Resting and stress dose of radio tracer were injected, imaging was acquired and reviewed in short axis, horizontal long axis and vertical long axis views. TID: 0.99 SSS: 5 SDS: 4 EF: 79 1. Patient tolerated Lexiscan well 2. Breast attenuation with mild decreased uptake involving the basal to mid anterior wall and anterolateral wall with mild reversibility, probably secondary to breast attenuation. 3. Normal left ventricular size, EF 79 percent AMADOR PORTILLO MD Jan 15, 2021 12:28
== END ==
LOC: CARD 08:15
PROVIDERS: ATTEND Internal Medicine Cardiovascular Disease
DX: I10 Essential (primary) hypertension (principal); R07.9 Chest pain, unspecified
CPT/HCPCS: 78452; 93017; A9502

== ENCOUNTER 2021-01-17 14:00 | Day surgery (SDC) | payer MEDICARE ==
[~2021-01-17] VITALS: Ht 167.6 cm; Wt 81.9 kg
[2021-01-17 12:01] VITALS: BP 173/89
[2021-01-17 12:07] LABS: BILIRUBIN,URINE NEGATIVE (NEGATIVE); CLARITY,URINE CLEAR; COLOR,URINE YELLOW; GLUCOSE, URINE (UA) NEGATIVE (NEGATIVE); KETONES,URINE NEGATIVE (NEGATIVE); LEUKOCYTE ESTERASE ,URINE TRACE (NEGATIVE); NITRITE,URINE NEGATIVE (NEGATIVE); PROTEIN,URINE NEGATIVE (NEGATIVE)
[2021-01-17 12:07] LABS: HEMOGLOBIN 14.4 g/dL (11.5-16.0); MEAN PLATELET VOLUME 10.7 fL (9.0-12.2); WHITE BLOOD COUNT 8.3 10^3/uL (4.3-11.0)
[2021-01-17 12:19] LABS: PROTHROMBIN TIME PATIENT 13.5 SEC (12.2-14.7)
[2021-01-17 12:20] LABS: BACTERIA,URINE TRACE /HPF
--- NOTE | 2021-01-17 12:23 | Diagnostic Imaging Report ---
INDICATION: Coronary artery disease Portable chest 12:13 PM There is a dual-chamber pacemaker. Heart size and pulmonary vascularity are normal. Lungs are clear. There are no effusions or pneumothoraces. IMPRESSION: Negative chest Dictated by: Dictated on workstation # [id number]
[2021-01-17 12:25] LABS: ALBUMIN 4.2 GM/DL (3.2-4.5); BILIRUBIN,TOTAL 0.4 MG/DL (0.1-1.0); CALCIUM 9.1 MG/DL (8.5-10.1); CREATININE SERUM 1.02 MG/DL (0.60-1.30); POTASSIUM 3.4 MMOL/L (3.6-5.0); TOTAL PROTEIN 7.3 GM/DL (6.4-8.2)
[~2021-01-17 14:00] MED LIST changes: -CATHETER FLUSH 10 ML SYR IV PRN; +HEParin (CATH LAB) 2,000 ML IV ONE; +LIDOCAINE 1% INJ 20 ML 20 ML VIAL ONE; +NS IV 1000 ML 1,000 ML IV SCH; +NS IV 1000 ML 1,000 ML ONE; -REGADENOSON 0.4 MG/5 ML SYR (LEXISCAN) IV ONE
[2021-01-17] MEDS ORDERED: MIDAZOLAM 5 MG/5 ML (VERSED) VIAL ONE (15:23)
[2021-01-17] MEDS ORDERED: fentaNYL INJ 100 MCG/2 ML AMP ONE (15:23)
--- NOTE | 2021-01-17 16:09 | Cardiac Procedure Note-CS/ASA ---
Pre-Procedure Note Pre-Op Procedure Note H&P Reviewed The H&P was reviewed, patient examined and no changes noted. Date H&P Reviewed: Jan 17, 2021 Time H&P Reviewed: 14:00 Conscious Sedation Pre-Proced Time 14:00 ASA Score 3 For ASA 3 and 4: Consider anesthesia and medical clearance. Also, for patients with a history of failed moderate sedation consider anesthesia. Airway Lungs Heart ASA score ASA 1: a normal healthy patient ASA 2: a patient with a mild systemic disease (mid diabetes, controlled hypertension, obesity x ASA 3: a patient with a severe systemic disease that limits activity (angina, COPD, prior Myocardial infarction) ASA 4: a patient with an incapacitating disease that is a constant threat to life (CHF, renal failure) ASA 5: a moribund patient not expected to survive 24 hrs. (ruptured aneurysm) ASA 6: a declared brain- patient whose organs are being harvested. For emergent operations, add the letter E after the classification Mallampati Classification Grade 3 Sedation Plan Analgesia, Amnesia, Plan communicated to team members, Discussed options with patient/fam, Discussed risks with patient/fam The patient is an appropriate candidate to undergo the planned procedure, sedation, and anesthesia. The patient immediately re-assessed prior to indication. AMADOR CARNES MD Jan 17, 2021 16:09
--- NOTE | 2021-01-17 16:10 | Discharge Inst-Post CATH ---
Discharge Inst-CATH/EP Problems Reviewed?: Yes Post Cardiac Cath/EP D/C Inst Follow Up/Plan Appointment with Dr. Portillo's office in 4 weeks <b>CARDIAC CATH/EP PROCEDURE DISCHARGE INSTRUCTIONS</b> ACTIVITY * Go Home directly and rest. * Limit activity of the leg (or wrist if it was used) for 7 days including aerobics, swimming, jogging, bicycling, etc. * Restrict stair-climbing for 7 days if possible, if not, climb up with your non-cath leg, then bring together on the same step. * Avoid lifting, pushing, pulling or excessive movement of the affected extremity for 7 days. * Customary sexual activity may be resumed after 2 days-use caution not to use a position that strains or causes pain to the affected extremity. * No driving for 24 hours. * NO SMOKING. * Avoid straining for bowel movements for 7 days. * Gentle walking on level ground is allowed. * Returning to work will depend on the type of procedure and the results. Your doctor will discuss this with you. CALL YOUR DOCTOR FOR ANY OF THE FOLLOWING: *If bleeding from the puncture site occurs- Apply gentle pressure to site with clean cloth and call your doctor or EMS. * If a knot or lump forms under the skin, increases in size, or causes pain. * If bruising appears to be worsening or moving further down your leg instead of disappearing. * Temperature above 101 F. CARE OF YOUR GROIN INCISION; * Bruising or purple discoloration of the skin near the puncture site is common. * You may shower only, no bathtub bathing for 5 days. Be careful to avoid slipping as your leg may feel stiff. * If a closure device was used on your femoral artery, please see the attached guide regarding care of the device and your leg. * Leave dressing on FOR 24 hours. CARE OF YOUR WRIST INCISION; * Bruising or purple discoloration of the skin near the puncture site is common. * You may shower. * DO NOT submerge wrist. * Leave dressing on FOR 24 hours. AMADOR PORTILLO MD Jan 17, 2021 16:10
--- NOTE | 2021-01-17 16:13 | Cardiac Cath Report ---
Cardiac Cath Report Physician (s)/Sign Out Clerk (s) Physician AMADOR CARNES MD Pre-Procedure Diagnosis Pre-Procedure Diagnosis: coronary artery disease Post-Procedure Note Procedure Start Date: Jan 17, 2021 Name of Procedure: Left heart catheterization Findings/Procedure Note PROCEDURE NOTE: 75-year-old lady with paroxysmal atrial fibrillation, hypertension hyperlipidemia, had an abnormal stress test, scheduled for cardiac catheterization possible PTCA. After explaining the procedure to the patient, all pros and cons were explained, all questions were answered. The patient signed the consent and then she was placed on the cardiac catheterization laboratory. Groin was prepped SL fashion local anesthesia was used. Sheath placed in the right femoral artery. Bart right and left catheter were used to access the coronary system. Pigtail was used to access the left ventricular cavity. Left ventriculogram was done At the end of the procedure the sheath was removed. Closure device was deployed FINDINGS: Hemodynamics LV 153/19, end-diastolic pressure of 19 Aorta 129/55 mean of 82 ANATOMY: Left Main is free of obstructive disease Left Anterior Descending is slightly tortuous with no obstructive disease Left Circumflex is dominant artery with no obstructive disease Right Coronory Artery is small to moderate in size with no obstructive disease LV Gram is normal in size with normal contractility, EF 60 percent CONCLUSION: 1. Dominant circumflex system with nonobstructive disease, mild coronary artery disease 2. Normal left ventricular size and systolic function estimated ejection fracti on 60 percent DISCUSSION AND RECOMMENDATION: Medical therapy is recommended no intervention is warranted Anesthesia Type: Conscious Sedation Estimated blood loss (mL): 25 ml Contrast Amount: 37 ml Total Radiation Dose: 306 mGy Post-Procedure Diagnosis Post-operative diagnosis: Chest pain Coronary artery disease Atrial fibrillation Hypertension Hyperlipidemia AMADOR CARNES MD Jan 17, 2021 16:13
[2021-01-17] MEDS ORDERED: NS IV 1000 ML 1,000 ML IV SCH (16:15)
[2021-01-17] MEDS ORDERED: PATIENT MAY USE OWN MEDS, ALL PO SCH (16:15)
[2021-01-17 16:35] VITALS: BP 141/65
[2021-01-17 19:42] VITALS: BP 140/64
[2021-01-17 20:18] VITALS: BP 139/65
== END 2021-01-17 20:53 | disposition home or self-care (01) ==
LOC: CSD 16:47 → CATH 20:53
PROVIDERS: ATTEND Internal Medicine Cardiovascular Disease
DX: I25.10 Atherosclerotic heart disease of native coronary artery without angina pectoris (principal); I48.0 Paroxysmal atrial fibrillation; G47.33 Obstructive sleep apnea (adult) (pediatric); E03.9 Hypothyroidism, unspecified; I65.23 Occlusion and stenosis of bilateral carotid arteries; I10 Essential (primary) hypertension; E78.5 Hyperlipidemia, unspecified; I47.1 Supraventricular tachycardia; I49.5 Sick sinus syndrome; R00.2 Palpitations; Z79.890 Hormone replacement therapy; Z79.899 Other long term (current) drug therapy; Z82.3 Family history of stroke; Z79.01 Long term (current) use of anticoagulants; Z95.0 Presence of cardiac pacemaker
CPT/HCPCS: 71045; 80053; 80061; 81000; 85027; 85610; 85730; 87081; 87088; 93458; C1760; C1894; 36415

== ENCOUNTER → 2021-05-07 | Outpatient (CLI) | payer MEDICARE ==
[~2021-05-07] MED LIST changes: -HEParin (CATH LAB) 2,000 ML IV ONE; -LIDOCAINE 1% INJ 20 ML 20 ML VIAL ONE; -NS IV 1000 ML 1,000 ML IV SCH; -NS IV 1000 ML 1,000 ML ONE
--- NOTE | 2021-05-07 12:39 | Diagnostic Imaging Report ---
INDICATION: Routine screening. COMPARISON: 05/06/2020 and 05/05/2019. TECHNIQUE: 2D and 3D bilateral screening mammography was performed with CAD. FINDINGS: Both breasts are heterogeneously dense, limiting the sensitivity of mammography. The retroareolar nodule on the left is stable. Benign nodules in the medial left breast appear stable. No spiculated mass or malignant appearing microcalcifications are seen. The axillae are unremarkable apart from the pacemaker battery pack on the left. IMPRESSION: No mammographic features suspicious for malignancy are identified. ACR BI-RADS Category 2: Benign findings. Result letter will be mailed to the patient. Note: At least 10% of breast cancer is not imaged by mammography. Dictated by: Dictated on workstation # [id number]
== END ==
LOC: RAD 10:30
PROVIDERS: ATTEND Internal Medicine
DX: Z12.31 Encounter for screening mammogram for malignant neoplasm of breast (principal)
CPT/HCPCS: 77063; 77067

== ENCOUNTER → 2022-05-08 | Outpatient (CLI) | payer MEDICARE ==
[~2022-05-08] MED LIST changes: +CHOL10004 PO; -CHOL100045 PO; -GLUC1TAB20 PO; +GLUC1TAB21 PO
--- NOTE | 2022-05-08 16:51 | Diagnostic Imaging Report ---
INDICATION: Routine screening. COMPARISON: Prior mammograms from 05/07/2021 and 05/06/2020. EXAMINATION: 2D and 3D bilateral screening mammography was performed with CAD. The current study was also evaluated with a Computer Aided Detection (CAD) system. FINDINGS: Both breasts are heterogeneously dense, limiting the sensitivity of mammography. Overall parenchymal pattern is stable. Left breast nodule stable. No spiculated mass or malignant-appearing microcalcifications are seen. Axillae are unremarkable. IMPRESSION: No mammographic features suspicious for malignancy are identified. ACR BI-RADS Category 2: Benign findings. Result letter will be mailed to the patient. Note: At least 10% of breast cancer is not imaged by mammography. Dictated by: Dictated on workstation # [id number]
== END ==
LOC: RAD 14:45
PROVIDERS: ATTEND Internal Medicine
DX: Z12.31 Encounter for screening mammogram for malignant neoplasm of breast (principal)
CPT/HCPCS: 77063; 77067

== ENCOUNTER → 2023-07-06 | Outpatient (CLI) | payer MEDICARE ==
--- NOTE | 2023-07-06 16:26 | Diagnostic Imaging Report ---
INDICATION: Routine screening. COMPARISON: 05/08/2022 and 05/07/2021. TECHNIQUE: 2D and 3D bilateral screening mammography was performed with CAD. FINDINGS: Both breasts are heterogeneously dense, limiting the sensitivity of mammography. No mass or malignant-appearing microcalcifications are seen. A pacemaker battery pack is in the left axilla. The right axilla is unremarkable. IMPRESSION: No mammographic features suspicious for malignancy are identified. ACR BI-RADS Category 1: Negative. Result letter will be mailed to the patient. Note: At least 10% of breast cancer is not imaged by mammography. Dictated by: Dictated on workstation # [id number]
== END ==
LOC: RAD 08:18
PROVIDERS: ATTEND Internal Medicine
DX: Z12.31 Encounter for screening mammogram for malignant neoplasm of breast (principal)
CPT/HCPCS: 77063; 77067